=== PATIENT | male | born 1965 | race Caucasian/White ===

== ENCOUNTER 2018-06-12 16:13 | Emergency (ER) | payer BC, SELFPAY ==
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
[2018-06-12] MEDS ORDERED: HYDROCODONE/APAP 10/325 TAB ONE (17:49)
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
== END 2018-06-12 18:53 | disposition home or self-care (01) ==
LOC: ER 16:13
DX: M25.562 Pain in left knee (principal); M25.462 Effusion, left knee; S43.402A Unspecified sprain of left shoulder joint, initial encounter; V49.40XA Driver injured in collision with unspecified motor vehicles in traffic accident, initial encounter; I10 Essential (primary) hypertension; Z88.5 Allergy status to narcotic agent
CPT/HCPCS: 71045; 73010; 99284